=== PATIENT | male | born 1930 | race Hispanic/Latino ===

== ENCOUNTER 2018-04-27 11:34 | Inpatient (IN) | payer OTHER ==
[2018-04-27 11:54] VITALS: BMI 25.5
[2018-04-27] MEDS ORDERED: Sodium Chloride 0.9% 1,000 ML IV ONE (12:48)
[2018-04-27 13:21] LABS: BASO # 0.1 K/uL (0.0-0.2); BASO % 0.7 % (0.0-2.0); EOS # 0.2 K/uL (0.0-0.7); EOS % 1.4 % (0.0-4.0); HEMOGLOBIN 10.4 g/dL (12.0-18.0); LYMPH # 1.4 K/uL (1.0-4.3); LYMPH % 11.3 % (20.0-40.0); MEAN CELL VOLUME 88.5 fL (80.0-94.0); MEAN CORPUSCULAR HEMOGLOBIN 29.4 pg (27.0-31.0); MEAN CORPUSCULAR HGB CONC 33.2 g/dL (33.0-37.0); MEAN PLATELET VOLUME 8.5 fL (7.2-11.7); NEUT # 10.1 K/uL (1.8-7.0); NEUT % 78.6 % (50.0-75.0); RBC 3.53 Mil/uL (4.40-5.90); RED CELL DISTRIBUTION WIDTH 14.8 % (11.5-14.5); WHITE BLOOD COUNT 12.8 K/uL (4.8-10.8)
[2018-04-27 13:24] LABS: VENOUS BLOOD GAS BASE EXCESS 1.9 mmol/L (0.0-2.0); VENOUS BLOOD GAS PCO2 55 mmHg (40-60); VENOUS BLOOD GAS PO2 23 mm/Hg (30-55); VENOUS BLOOD PH 7.33 (7.32-7.43)
[2018-04-27 13:27] LABS: PROTHROMBIN TIME 11.4 SECONDS (9.7-12.2)
[2018-04-27 13:41] LABS: ALB/GLOB RATIO 1.3 (1.0-2.1); ALBUMIN 3.7 g/dL (3.5-5.0); ALT/SGPT 23 U/L (21-72); AST/SGOT 16 U/L (17-59); BLOOD UREA NITROGEN 20 mg/dL (9-20); GFR NON-AFRICAN AMERICAN > 60
--- NOTE | 2018-04-27 13:52 | CT ---
Date of service: 04/27/2018 PROCEDURE: CT HEAD WITHOUT CONTRAST. HISTORY: AMS COMPARISON: None available. TECHNIQUE: Axial computed tomography images were obtained through the head/brain without intravenous contrast. Radiation dose: Total exam DLP = 1122.35 mGy-cm. This CT exam was performed using one or more of the following dose reduction techniques: Automated exposure control, adjustment of the mA and/or kV according to patient size, and/or use of iterative reconstruction technique. FINDINGS: HEMORRHAGE: No acute parenchymal, subarachnoid nor extra-axial hemorrhage. BRAIN: Moderate patchy deep and subcortical white matter ischemic changes throughout both cerebral hemispheres. Additionally, there are mild diffuse-confluent chronic periventricular white matter ischemic changes scattered chronic bilateral basal nuclei lacunar type infarcts also present. . Note that the possibility of a small hyperacute infarct cannot be excluded on this exam. No obvious parenchymal nor extra-axial mass or collection seen on this noncontrast study. Moderate generalized volume loss. Vascular calcifications both carotid siphons and vertebral arteries. VENTRICLES: No obstructive hydrocephalus. CALVARIUM: Unremarkable. PARANASAL SINUSES: Minor mucosal thickening seen within a few ethmoid air cells. MASTOID AIR CELLS: Unremarkable as visualized. No inflammatory changes. OTHER FINDINGS: None. IMPRESSION: No acute intracranial hemorrhage. Moderate patchy deep and subcortical white matter ischemic changes both cerebral hemispheres. There also mild diffuse/confluent chronic periventricular white matter ischemic changes with scattered chronic bilateral basal nuclei lacunar type infarcts. Moderate generalized volume loss.
[2018-04-27 13:59] LABS: B-TYPE NATRIURETIC PEPTIDE 640 pg/mL (0-900)
--- NOTE | 2018-04-27 14:48 | C.PDOC ---
History Of Present Illness 88 y/o male, w/PMhx of HTN, diabetes, and recent left hip fracture s/p ORIF, BIBA for evaluation of a syncopal episode developed [employer]. As per family members, patient woke up in the morning and was complaining of feeling weak. Pt went to do some activities when he sustained a syncopal episode. On arrival of ambulance , patient had a fingerstick less than 30. Presently, patient denies having active physical complaints. Patient appears awake, slightly confused, and not in any apparent disease. Time Seen by Provider: 04/27/18 12:14 Chief Complaint (Nursing): Altered Mental Status History Per: Patient, Family History/Exam Limitations: None Onset/Duration Of Symptoms: Days Current Symptoms Are (Timing): Still Present Past Medical History Reviewed: Historical Data, Nursing Documentation, Vital Signs Vital Signs: Last Vital Signs Temp 98 F 04/29/18 05:57 Pulse 57 L 04/29/18 05:57 Resp 20 04/29/18 05:57 BP 142/57 L 04/29/18 05:57 Pulse Ox 96 04/29/18 05:57 - Medical History PMH: HTN ( PER PATIENT'S SON) Other Surgeries: Hx of surgeries Family History: States: No Known Family Hx - Social History Hx Alcohol Use: No Hx Substance Use: No - Immunization History Hx Tetanus Toxoid Vaccination: No Hx Influenza Vaccination: No Hx Pneumococcal Vaccination: No Review Of Systems Except As Marked, All Systems Reviewed And Found Negative. Constitutional: Negative for: Fever, Chills Neurological: Positive for: Other (syncope). Negative for: Weakness, Numbness Physical Exam - Physical Exam Appears: No Acute Distress, Other (awake, slightly confused) Skin: Normal Color, Warm, Dry Head: Atraumatic, Normacephalic Eye(s): bilateral: Normal Inspection Nose: Normal Oral Mucosa: Moist Neck: Supple Chest: Symmetrical Cardiovascular: Rhythm Regular, Murmur (pansystolic murmur 3/6) Respiratory: Normal Breath Sounds, No Rales, No Rhonchi, No Wheezing Gastrointestinal/Abdominal: Normal Exam, Soft, No Tenderness, No Guarding, No Rebound Extremity: Normal ROM, Other (left lower leg - non pitting edema) Neurological/Psych: Oriented x3, Normal Speech ED Course And Treatment - Laboratory Results Result Diagrams: 04/28/18 06:18 04/28/18 06:16 ECG: Interpreted By Me, Viewed By Me ECG Interpretation: Normal Interpretation Of ECG: Sinus rhythm with 1st degree AV block. Otherwise normal ECG O2 Sat by Pulse Oximetry: 100 (RA) Pulse Ox Interpretation: Normal - Radiology CXR: Interpreted by Me, Viewed By Me - CT Scan/US Ct head w/o contrast Other Rad Studies (CT/US): Radiology Report Reviewed CT/US Interpretation: IMPRESSION: No acute intracranial hemorrhage. Moderate patchy deep and subcortical white matter ischemic changes both cerebral hemispheres. There also mild diffuse/confluent chronic periventricular white matter ischemic changes with scattered chronic bilateral basal nuclei lacunar type infarcts. Moderate generalized volume loss. . Doppler B/L Other Rad Studies (CT/US): Radiology Report Reviewed CT/US Interpretation: (-) DVT of B/L lEs Progress Note: Pt remained stable during [facility] ED evaluation. case discussed with and admission rranged to tele with Dx: Syncope Disposition - Disposition Disposition: HOSPITALIZED Disposition Time: 14:01 Condition: STABLE - Clinical Impression Clinical Impression: Syncope - PA / SENIOR QUANTITY SURVEYOR / Resident Statement MD/DO has reviewed & agrees with the documentation as recorded. - Scribe Statement The provider has reviewed the documentation as recorded by the Keerthi Klely Provider Attestation All medical record entries made by the Scribe were at my direction and personally dictated by me. I have reviewed the chart and agree that the record accurately reflects my personal performance of the history, physical exam, medical decision making, and the department course for this patient. I have also personally directed, reviewed, and agree with the discharge instructions and disposition.
[2018-04-27] MEDS ORDERED: Dextrose 50% SYRINGE Inj (50 ml) IV STA (15:05)
[2018-04-27] MEDS ORDERED: Dextrose 50% SYRINGE Inj (50 ml) ONE (15:08)
--- NOTE | 2018-04-27 15:36 | RAD ---
Date of service: 04/27/2018 HISTORY: Sepsis Patient COMPARISON: No prior. FINDINGS: LUNGS: No consolidation. Trace linear bandlike faint opacities left hemidiaphragm/left lung base - subsegmental discoid atelectasis -and or scarring/fibrotic changes here considerations-chronicity unknown. PLEURA: No significant pleural effusion identified, no pneumothorax apparent. Additional findings as referenced above regarding the left aminata diaphragmatic pleural surface. CARDIOVASCULAR: Probable minimal cardiomegaly. Tortuous thoracic aorta. Atherosclerotic vascular calcifications present. OSSEOUS STRUCTURES: Bilateral shoulder arthrosis VISUALIZED UPPER ABDOMEN: Normal. OTHER FINDINGS: None. IMPRESSION: No consolidation. Mostly thin bandlike but also trace radiolucent patchy faint opacity over left hemidiaphragm - combination subsegmental atelectasis/trace linear fibrosis and post inflammatory like changes here are favored. No dense air bronchograms consolidation seen. A subtle infiltrate cannot be entirely excluded here Follow-up recommended
[2018-04-27 15:50] LABS: SQUAMOUS EPITHIAL < 1 /hpf (0-5); URINE BILIRUBIN NEGATIVE (NEGATIVE); URINE BLOOD NEGATIVE (NEGATIVE); URINE CLARITY Clear (Clear); URINE COLOR Yellow (YELLOW); URINE GLUCOSE (UA) 1+ mg/dL (Normal); URINE LEUKOCYTE ESTERASE NEG Leu/uL (Negative); URINE PROTEIN NEGATIVE (NEGATIVE); URINE UROBILINOGEN NORMAL mg/dL (0.2-1.0)
--- NOTE | 2018-04-27 16:22 | CP.PCM.HP ---
Past Patient History - Past Social History Smoking Status: Never Smoked - CARDIAC Hx Hypertension: Yes ( PER PATIENT'S SON) - ENDOCRINE/METABOLIC Hx Diabetes Mellitus Type 2: Yes ( PER PATIENT AND SON) - PSYCHIATRIC Hx Substance Use: No - SURGICAL HISTORY Hx Surgeries: Yes Hx Orthopedic Surgery: Yes (RIGHT HIP SURGERY 6 WEEKS AGO PER PATIENT'S SON) - ANESTHESIA Hx Anesthesia: Yes Meds Allergies/Adverse Reactions: Allergies Allergy/AdvReac Type Severity Reaction Status Date / Time No Known Allergies Allergy Unverified 04/27/18 11:55 Results - Vital Signs Recent Vital Signs: Last Vital Signs Temp 97.6 F 04/27/18 14:46 Pulse 67 04/27/18 14:46 Resp 18 04/27/18 14:46 BP 127/56 L 04/27/18 14:46 Pulse Ox 100 04/27/18 15:24 - Labs Result Diagrams: 04/27/18 13:12 04/27/18 13:12 Labs: Laboratory Results - last 24 hr 04/27/18 04/27/18 04/27/18 11:48 13:12 13:12 WBC 12.8 H RBC 3.53 L Hgb 10.4 L Hct 31.2 L MCV 88.5 MCH 29.4 MCHC 33.2 RDW 14.8 H Plt Count 260 MPV 8.5 Neut % (Auto) 78.6 H Lymph % (Auto) 11.3 L [place] % (Auto) 8.0 Eos % (Auto) 1.4 Baso % (Auto) 0.7 Neut # (Auto) 10.1 H Lymph # (Auto) 1.4 [place] # (Auto) 1.0 H Eos # (Auto) 0.2 Baso # (Auto) 0.1 PT 11.4 INR 1.0 APTT 30 pO2 VBG pH VBG pCO2 VBG HCO3 VBG Total CO2 VBG O2 Sat (Calc) VBG Base Excess VBG Potassium Glucose Lactate Sodium Potassium Chloride Carbon Dioxide Anion Gap BUN Creatinine Est GFR ( Amer) Est GFR (Non-Af Amer) POC Glucose (mg/dL) 108 Random Glucose Calcium Phosphorus Magnesium Total Bilirubin AST ALT Alkaline Phosphatase Total Creatine Kinase Troponin I NT-Pro-B Natriuret Pep Total Protein Albumin Globulin Albumin/Globulin Ratio Venous Blood Potassium Urine Color Urine Clarity Urine pH Ur Specific [place] Urine Protein Urine Glucose (UA) Urine Ketones Urine Blood Urine Nitrate Urine Bilirubin Urine Urobilinogen Ur Leukocyte Esterase Urine WBC (Auto) Ur Squamous Epith Cells 04/27/18 04/27/18 04/27/18 13:12 13:21 15:01 WBC RBC Hgb Hct MCV MCH MCHC RDW Plt Count MPV Neut % (Auto) Lymph % (Auto) [place] % (Auto) Eos % (Auto) Baso % (Auto) Neut # (Auto) Lymph # (Auto) [place] # (Auto) Eos # (Auto) Baso # (Auto) PT INR APTT pO2 23 L VBG pH 7.33 VBG pCO2 55 VBG HCO3 24.7 VBG Total CO2 30.7 H VBG O2 Sat (Calc) 38.6 L VBG Base Excess 1.9 VBG Potassium 3.8 Glucose 76 Lactate 2.3 H Sodium 143 139.0 Potassium 4.1 Chloride 101 104.0 Carbon Dioxide 29 Anion Gap 16 BUN 20 Creatinine 0.6 L Est GFR ( Amer) > 60 Est GFR (Non-Af Amer) > 60 POC Glucose (mg/dL) 41 L Random Glucose 82 Calcium 9.0 Phosphorus 3.8 Magnesium 1.5 L Total Bilirubin 0.3 AST 16 L ALT 23 Alkaline Phosphatase 150 H Total Creatine Kinase 66 Troponin I 0.0180 NT-Pro-B Natriuret Pep 640 Total Protein 6.5 Albumin 3.7 Globulin 2.8 Albumin/Globulin Ratio 1.3 Venous Blood Potassium 3.8 Urine Color Urine Clarity Urine pH Ur Specific [place] Urine Protein Urine Glucose (UA) Urine Ketones Urine Blood Urine Nitrate Urine Bilirubin Urine Urobilinogen Ur Leukocyte Esterase Urine WBC (Auto) Ur Squamous Epith Cells 04/27/18 04/27/18 04/27/18 15:02 15:30 15:45 WBC RBC Hgb Hct MCV MCH MCHC RDW Plt Count MPV Neut % (Auto) Lymph % (Auto) [place] % (Auto) Eos % (Auto) Baso % (Auto) Neut # (Auto) Lymph # (Auto) [place] # (Auto) Eos # (Auto) Baso # (Auto) PT INR APTT pO2 VBG pH VBG pCO2 VBG HCO3 VBG Total CO2 VBG O2 Sat (Calc) VBG Base Excess VBG Potassium Glucose Lactate Sodium Potassium Chloride Carbon Dioxide Anion Gap BUN Creatinine Est GFR ( Amer) Est GFR (Non-Af Amer) POC Glucose (mg/dL) 37 L* 156 H Random Glucose Calcium Phosphorus Magnesium Total Bilirubin AST ALT Alkaline Phosphatase Total Creatine Kinase Troponin I NT-Pro-B Natriuret Pep Total Protein Albumin Globulin Albumin/Globulin Ratio Venous Blood Potassium Urine Color Yellow Urine Clarity Clear Urine pH 5.0 Ur Specific [place] 1.014 Urine Protein Negative Urine Glucose (UA) 1+ H Urine Ketones Negative Urine Blood Negative Urine Nitrate Negative Urine Bilirubin Negative Urine Urobilinogen Normal Ur Leukocyte Esterase Neg Urine WBC (Auto) 1 Ur Squamous Epith Cells < 1
[2018-04-27 22:20] LABS: CK-MB 1.67 ng/mL (0.0-3.38); TROPONIN I 0.023 ng/mL (0.00-0.120)
[2018-04-28 06:26] LABS: BASO # 0.1 K/uL (0.0-0.2); BASO % 0.7 % (0.0-2.0); EOS # 0.5 K/uL (0.0-0.7); HEMOGLOBIN 10.5 g/dL (12.0-18.0); LYMPH # 2.5 K/uL (1.0-4.3); LYMPH % 23.9 % (20.0-40.0); MEAN CELL VOLUME 88.3 fL (80.0-94.0); MEAN CORPUSCULAR HEMOGLOBIN 29.1 pg (27.0-31.0); MEAN PLATELET VOLUME 8.7 fL (7.2-11.7); MONO # 1.1 K/uL (0.0-0.8); MONO % 10.6 % (0.0-10.0); NEUT # 6.2 K/uL (1.8-7.0); NEUT % 59.8 % (50.0-75.0); RBC 3.61 Mil/uL (4.40-5.90); RED CELL DISTRIBUTION WIDTH 15.1 % (11.5-14.5); WHITE BLOOD COUNT 10.4 K/uL (4.8-10.8)
[2018-04-28 06:45] LABS: ALB/GLOB RATIO 1.3 (1.0-2.1); ALBUMIN 3.4 g/dL (3.5-5.0); ALT/SGPT 27 U/L (21-72); AST/SGOT 15 U/L (17-59); BLOOD UREA NITROGEN 16 mg/dL (9-20); CALCIUM 8.8 mg/dl (8.6-10.4); GFR NON-AFRICAN AMERICAN > 60
--- NOTE | 2018-04-28 12:53 | CARD ---
APPROVED REPORT Date of service: 04/27/2018 EKG Measurement Heart [id number] <Conclusion> Sinus rhythm with 1st degree AV block Otherwise normal ECG
--- NOTE | 2018-04-28 15:46 | VASCLAB ---
Date of service: 04/27/2018 PROCEDURE: Lower Extremity Venous Duplex Exam. HISTORY: legs swelling, syncope PRIORS: None. TECHNIQUE: Bilateral common femoral, femoral, popliteal and posterior tibial, peroneal and great saphenous veins were evaluated. Flow was assessed with color Doppler, compressibility, assessment of phasic flow and augmentation response. Report prepared by Neftali Guadarrama, BS, RVT FINDINGS: RIGHT: 1. Common Femoral Vein: 1.1. Compressibility - Fully compressible: Thrombus - None : Flow - Phasic: Augmentation -Normal: Reflux - None. 2. Femoral Vein: 2.1. Compressibility - Fully compressible: Thrombus - None : Flow - Phasic: Augmentation -Normal: Reflux - None. 3. Popliteal Vein: 3.1. Compressibility - Fully compressible: Thrombus - None : Flow - Phasic: Augmentation -Normal: Reflux - None. 4. Posterior Tibial Vein: 4.1. Compressibility - Fully compressible: Thrombus - None: Flow - Phasic: Augmentation -Normal: Reflux - None. 5. Peroneal Vein: 5.1. Compressibility - Fully compressible: Thrombus - None: Flow - Phasic: Augmentation -Normal: Reflux - None. 6. Great Saphenous Vein: 6.1. Compressibility - Fully compressible: Thrombus - None: Flow - Phasic: Augmentation - Normal: Reflux - None. LEFT: 1. Common Femoral Vein: 1.1. Compressibility - Fully compressible: Thrombus - None: Flow - Phasic: Augmentation -Normal: Reflux - None. 2. Femoral Vein: 2.1. Compressibility - Fully compressible: Thrombus - None: Flow - Phasic: Augmentation -Normal: Reflux - None. 3. Popliteal Vein: 3.1. Compressibility - Fully compressible: Thrombus - None : Flow - Phasic: Augmentation -Normal: Reflux - None. 4. Posterior Tibial Vein: 4.1. Compressibility - Fully compressible: Thrombus - None: Flow - Phasic: Augmentation -Normal: Reflux - None. 5. Peroneal Vein: 5.1. Compressibility - Fully compressible: Thrombus - None: Flow - Phasic: Augmentation -Normal: Reflux - None. 6. Great Saphenous Vein: 6.1. Compressibility - Fully compressible: Thrombus - None: Flow - Phasic: Augmentation - Normal: Reflux - None. OTHER FINDINGS: Right: None significant. Left: None significant. IMPRESSION: Right: No evidence of deep or superficial vein thrombosis of the right lower extremity. Normal valve function noted of the right side. Left: No evidence of deep or superficial vein thrombosis of the left lower extremity. Normal valve function noted of the left side.
--- NOTE | 2018-04-28 20:01 | CP.PCM.PN ---
Subjective - Date & Time of Evaluation Date of Evaluation: 04/28/18 Time of Evaluation: 10:00 Objective - Vital Signs/Intake and Output Vital Signs (last 24 hours): Temp Pulse Resp BP Pulse Ox 98.1 F 64 17 111/71 99 04/28/18 16:00 04/28/18 19:36 04/28/18 16:00 04/28/18 16:00 04/28/18 16:00 - Medications Medications: Current Medications Amlodipine Besylate (Norvasc) 5 mg PO DAILY [facility] Last Admin: 04/28/18 09:30 Dose: 5 mg Gabapentin (Neurontin) 100 mg PO BID [facility] Last Admin: 04/28/18 09:30 Dose: 100 mg Rivaroxaban (Xarelto) 10 mg PO DAILY [facility] Last Admin: 04/28/18 09:30 Dose: 10 mg Tamsulosin HCl (Flomax) 0.4 mg PO DAILY [facility] Last Admin: 04/28/18 09:30 Dose: 0.4 mg - Labs Labs: 04/28/18 06:18 04/28/18 06:16 PT 11.4 SECONDS (9.7-12.2) 04/27/18 13:12 INR 1.0 04/27/18 13:12 APTT 30 SECONDS (21-34) 04/27/18 13:12
--- NOTE | 2018-04-29 10:34 | CP.PCM.PN ---
Subjective - Date & Time of Evaluation Date of Evaluation: 04/29/18 Time of Evaluation: 11:15 - Subjective Subjective: clinically same Objective - Vital Signs/Intake and Output Vital Signs (last 24 hours): Temp Pulse Resp BP Pulse Ox 98 F 57 L 20 142/57 L 100 04/29/18 05:57 04/29/18 05:57 04/29/18 05:57 04/29/18 05:57 04/29/18 06:21 Intake and Output: 04/29/18 04/29/18 06:59 18:59 Intake Total 240 Balance 240 - Medications Medications: Current Medications Amlodipine Besylate (Norvasc) 5 mg PO DAILY [facility] Last Admin: 04/29/18 09:25 Dose: 5 mg Gabapentin (Neurontin) 100 mg PO BID [facility] Last Admin: 04/29/18 09:25 Dose: 100 mg Rivaroxaban (Xarelto) 10 mg PO DAILY [facility] Last Admin: 04/29/18 09:27 Dose: 10 mg Tamsulosin HCl (Flomax) 0.4 mg PO DAILY [facility] Last Admin: 04/29/18 09:25 Dose: 0.4 mg - Labs Labs: 04/28/18 06:18 04/28/18 06:16 PT 11.4 SECONDS (9.7-12.2) 04/27/18 13:12 INR 1.0 04/27/18 13:12 APTT 30 SECONDS (21-34) 04/27/18 13:12
[2018-04-29] MEDS ORDERED: Magnesium Sulfate 1 gm in D5W 1 GM/100 ML BAG IVPB ONE (11:00)
--- NOTE | 2018-04-29 13:04 | CP.PCM.CON ---
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 As per family members, patient woke up in the morning and was complaining of feeling weak. Pt was attending a ' mass when he sustained a syncopal episode. > claims had a full breakfast in AM Recovering from hip surgery, ambulates with walker. Denies CP but states mild SOb with exertion. No fevers, chills ro cough No palpitation or dizziness Cardiac HX: No CA/coronary intervention or CABG PMHX: HTn chronic labile; DM chronic labile, Hip surgery: recent stable Review of Systems - Review of Systems All systems: reviewed and no additional remarkable complaints except Past Patient History - Past Medical History & Family History Past Medical History?: Yes - Past Social History Smoking Status: Never Smoked - CARDIAC Hx Hypertension: Yes ( PER PATIENT'S SON) - ENDOCRINE/METABOLIC Hx Diabetes Mellitus Type 2: Yes - MUSCULOSKELETAL/RHEUMATOLOGICAL Hx Falls: Yes - PSYCHIATRIC Hx Substance Use: No - SURGICAL HISTORY Hx Surgeries: Yes Hx Orthopedic Surgery: Yes (RIGHT HIP SURGERY 6 WEEKS AGO PER PATIENT'S SON) - ANESTHESIA Hx Anesthesia: Yes Hx Anesthesia Reactions: No Hx Malignant Hyperthermia: No Has any member of the family had a problem w/ anesthesia?: No Meds Allergies/Adverse Reactions: Allergies Allergy/AdvReac Type Severity Reaction Status Date / Time No Known Allergies Allergy Unverified 04/27/18 11:55 - Medications Medications: Current Medications Amlodipine Besylate (Norvasc) 5 mg PO DAILY [facility] Last Admin: 04/29/18 09:25 Dose: 5 mg Gabapentin (Neurontin) 100 mg PO BID [facility] Last Admin: 04/29/18 09:25 Dose: 100 mg Rivaroxaban (Xarelto) 10 mg PO DAILY [facility] Last Admin: 04/29/18 09:27 Dose: 10 mg Tamsulosin HCl (Flomax) 0.4 mg PO DAILY [facility] Last Admin: 04/29/18 09:25 Dose: 0.4 mg Physical Exam - Constitutional Appears: No Acute Distress - Head Exam Head Exam: ATRAUMATIC, NORMAL INSPECTION, NORMOCEPHALIC - Eye Exam Eye Exam: EOMI, Normal appearance, PERRL - ENT Exam ENT Exam: Mucous Membranes Moist, Normal Oropharynx - Neck Exam Neck exam: Positive for: Normal Inspection - Respiratory Exam Respiratory Exam: Clear to Auscultation Bilateral, NORMAL BREATHING PATTERN. absent: Rhonchi, Wheezes - Cardiovascular Exam Cardiovascular Exam: REGULAR RHYTHM, +S1, +S2, Systolic Murmur (3/6 [place] with a soft A2, mild radiation to carotids) - GI/Abdominal Exam GI & Abdominal Exam: Normal Bowel Sounds, Soft. absent: Tenderness - Extremities Exam Extremities exam: Positive for: normal inspection. Negative for: calf tenderness, pedal edema - Neurological Exam Neurological exam: Alert, CN II-XII Intact, Oriented x3 - Psychiatric Exam Psychiatric exam: Normal Affect, Normal Mood - Skin Skin Exam: Normal Color, Warm Results - Vital Signs Recent Vital Signs: Last Vital Signs Temp 98 F 04/29/18 10:57 Pulse 63 04/29/18 10:57 Resp 18 04/29/18 10:57 BP 157/74 H 04/29/18 10:57 Pulse Ox 97 04/29/18 10:57 - Labs Result Diagrams: 04/28/18 06:18 04/28/18 06:16 Labs: Laboratory Results - last 24 hr 04/28/18 04/28/18 04/28/18 07:32 11:11 16:32 POC Glucose (mg/dL) 151 H 228 H 228 H 04/28/18 04/29/18 04/29/18 21:30 06:06 11:57 POC Glucose (mg/dL) 195 H 137 H 270 H Assessment & Plan - Assessment and Plan (Free Text) Assessment: Syncope > likely induced by hypoglycemia; sx's improved > supportive care and adjust and eval DM meds > CT head: chronic changes no acute pathology > Neuro f/u Cardiac Murmur > typical of atleast moderate by exam: f/u echo to eval > EKG: NSR with 1st deg AVB: directly viewed by me > Trop neg x2 > No ADHF or active ischemia or angina > suggest ASA and statin HTN > Mild > cont amlodipine > monitor for now
[2018-04-29 17:10] VITALS: RESP 20
--- NOTE | 2018-04-29 17:41 | CP.PCM.CON ---
History of Present Illness - History of Present Illness History of Present Illness: PGY-[address] Nuñez CC - syncope Patient is a 88 yo male with PMHx of HTN, DM2, BPH, and right hip fracture s/p ORIF 6 weeks ago, who presented with a syncopal episode. EMS personal measured blood glucose to be 30 and he was given dextrose. He stated he ate a normal full breakfast. Patient states that on the morning of admission date he was attending a memorial service when after walking to his car seat and sitting down he suddenly lost consciousness. He states that there were many witnesses though he is unsure if he was convulsing or exactly how long he lost consciousness. The next thing he remembers was waking to EMS personal. While in ED, CT scan showed no acute ICH and EKG showed 1st degree av block. Patient states that he had a similar loss of consciousness 6 weeks ago. He is compliant with his daily medications and checks his blood glucose daily which ranges around 150-200 usually. At the time of exam he denies headache, blurry vision, dizziness, lightheadedness, numbness, weakness, paresthesias. PMH- as above PSH- ORIF of right hip 6 weeks ago Medications- Metformin, Flomax, Lantus 24u, Norvasc Allergies- NKDA ROS- as above Family- no family history of seizures social- 2 years ago, 3 adult children. Former smoker and former alcohol use but quit many years ago. 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 Since the original fall he uses a walker for ambulation but prior to that he ambulated independently without problems. Review of Systems - Constitutional Constitutional: absent: Chills, Fever - EENT Eyes: absent: Blurred Vision Ears: Abnormal Hearing - Cardiovascular Cardiovascular: absent: Chest Pain - Respiratory Respiratory: absent: Cough, Wheezing - Gastrointestinal Gastrointestinal: absent: Abdominal Pain, Diarrhea, Nausea - Genitourinary Genitourinary: absent: Dysuria - Musculoskeletal Musculoskeletal: Back Pain - Neurological Neurological: Abnormal Hearing. absent: Confusion, Convulsions, Dizziness, Numbness, Focal Weakness, Sensory Deficit, Vertigo, Weakness Past Patient History - Past Medical History & Family History Past Medical History?: Yes - Past Social History Smoking Status: Never Smoked - CARDIAC Hx Hypertension: Yes ( PER PATIENT'S SON) - ENDOCRINE/METABOLIC Hx Diabetes Mellitus Type 2: Yes - MUSCULOSKELETAL/RHEUMATOLOGICAL Hx Falls: Yes - PSYCHIATRIC Hx Substance Use: No - SURGICAL HISTORY Hx Surgeries: Yes Hx Orthopedic Surgery: Yes (RIGHT HIP SURGERY 6 WEEKS AGO PER PATIENT'S SON) - ANESTHESIA Hx Anesthesia: Yes Hx Anesthesia Reactions: No Hx Malignant Hyperthermia: No Has any member of the family had a problem w/ anesthesia?: No Meds Allergies/Adverse Reactions: Allergies Allergy/AdvReac Type Severity Reaction Status Date / Time No Known Allergies Allergy Unverified 04/27/18 11:55 - Medications Medications: Current Medications Amlodipine Besylate (Norvasc) 5 mg PO DAILY [facility] Last Admin: 04/29/18 09:25 Dose: 5 mg Gabapentin (Neurontin) 100 mg PO BID [facility] Last Admin: 04/29/18 17:03 Dose: 100 mg Rivaroxaban (Xarelto) 10 mg PO DAILY [facility] Last Admin: 04/29/18 09:27 Dose: 10 mg Tamsulosin HCl (Flomax) 0.4 mg PO DAILY [facility] Last Admin: 04/29/18 09:25 Dose: 0.4 mg Physical Exam - Constitutional Appears: Well, Non-toxic, No Acute Distress - Head Exam Head Exam: ATRAUMATIC, NORMAL INSPECTION - Eye Exam Eye Exam: EOMI, PERRL. absent: Nystagmus - ENT Exam ENT Exam: Mucous Membranes Moist - Respiratory Exam Respiratory Exam: Clear to Auscultation Bilateral, NORMAL BREATHING PATTERN. absent: Rales, Rhonchi, Wheezes - Cardiovascular Exam Cardiovascular Exam: REGULAR RHYTHM. absent: Tachycardia - GI/Abdominal Exam GI & Abdominal Exam: Normal Bowel Sounds, Soft. absent: Tenderness - Extremities Exam Extremities exam: Positive for: normal capillary refill, normal inspection. Negative for: pedal edema, pedal pulses present - Neurological Exam Neurological exam: Alert, CN II-XII Intact, Normal Gait (patient with antalgic gait 2/2 to recent hip surgery), Oriented x3, Reflexes Normal - Psychiatric Exam Psychiatric exam: Normal Affect, Normal Mood - Skin Skin Exam: Normal Color, Warm Results - Vital Signs Recent Vital Signs: Last Vital Signs Temp 97.5 F L 04/29/18 15:00 Pulse 68 04/29/18 15:00 Resp 20 04/29/18 15:00 BP 125/66 04/29/18 15:00 Pulse Ox 99 04/29/18 15:00 - Labs Result Diagrams: 04/28/18 06:18 04/28/18 06:16 Labs: Laboratory Results - last 24 hr 04/28/18 04/29/18 04/29/18 21:30 06:06 11:57 POC Glucose (mg/dL) 195 H 137 H 270 H Assessment & Plan - Assessment and Plan (Free Text) Plan: Patient is a 88 yo male with PMHx of HTN, DM2, BPH, and right hip fracture s/p ORIF 6 weeks ago, who presented with a syncopal episode: Syncope -Likely 2/2 to hypoglycemia, EMS found blood glucose to be 30, in our ED blood glucose at one point was 37, he also had recent changes to his insulin regimen -CT head w/o contrast: * No acute intracranial hemorrhage. Moderate patchy deep and subcortical white matter ischemic changes both cerebral hemispheres. There also mild diffuse/ confluent chronic periventricular white matter ischemic changes with scattered chronic bilateral basal nuclei lacunar type infarcts. Moderate generalized volume loss. -Venous Dopplers LE: * Negative for DVT b/l -Patient is currently on xaralto 10mg po qd for DVT prophylaxis given he had recent hip surgery (hip replacement?) -Start aspirin 81mg po qd and crestor 10mg po qd * also recommended by cardiology -Patient needs to follow-up with a diabetic specialist who can better optimize his insulin regimen Neurology will sign off Case discussed with Dr Nuñez
[2018-04-30 07:47] VITALS: BP 123/70; TEMP 98.2; O2SAT 94
[2018-04-30 13:37] VITALS: PULSE 60
--- NOTE | 2018-05-01 16:37 | CARD ---
APPROVED REPORT Date of service: 04/30/2018 EXAM: Two-dimensional and M-mode echocardiogram with Doppler and color Doppler. Other Information Quality : GoodRhythm : INDICATION Syncope RISK FACTORS Hypertension Diabetes 2D DIMENSIONS IVSd0.9 (0.7-1.1cm)LVDd5.4 (3.9-5.9cm) LVOT Diameter2.0 (1.8-2.4cm)PWd1.1 (0.7-1.1cm) LVDs4.4 (2.5-4.0cm)FS (%) 19.6 % LVEF (%)51.0 (>50%) M-Mode DIMENSIONS RVDd2.15 (2.1-3.2cm)Left Atrium (MM)3.12 (2.5-4.0cm) IVSd1.77 (0.7-1.1cm)Aortic Root3.52 (2.2-3.7cm) LVDd4.27 (4.0-5.6cm)Aortic Cusp Exc.1.39 (1.5-2.0cm) PWd1.32 (0.7-1.1cm)FS (%) 21 % LVDs3.37 (2.0-3.8cm)LVEF (%)55 (>50%) Aortic Valve AoV Peak Ivxtvkzn478.4cm/sAoV VTI95.0cmAO Peak GR.55mmHg LVOT Peak Ncfskirz06.2cm/sLVOT VTI24.33cmAO Mean GR.34mmHg THERESE (VMAX)0.58xd5IPA (VTI)0.81cm2 Mitral Valve MV E Zjskszay89.7cm/sMV A Mtorfmhn624.9cm/sE/A ratio0.6 TDI E/Lateral E'0.0E/Medial E'0.0 Tricuspid Valve TR Peak Kdxuzcvo236qk/sTR Peak Gr.46neJaQYWE18hyBv LEFT VENTRICLE The left ventricle is normal size. There is normal left ventricular wall thickness. The left ventricular function is normal. The left ventricular ejection fraction is within the normal range. There is normal LV segmental wall motion. Transmitral Doppler flow pattern is abnormal. RIGHT VENTRICLE The right ventricle is normal size. ATRIA The left atrium size is normal. The right atrium size is normal. AORTIC VALVE There is severe valvular aortic stenosis. MITRAL VALVE Mitral regurgitation is trace. TRICUSPID VALVE There is trace to mild tricuspid regurgitation. <Conclusion> Normal LV systolic function. Diastolic dysfunction. Normal chamber size. Trace MR. Trace to mild TR. severe Aortic stenosis.
== END 2018-04-30 14:26 | disposition home or self-care (01) | DRG 639 ==
LOC: C.ER 11:34 → C.9E 14:02 → C.9I 17:38 → C.6T 04-28 17:26
PROVIDERS: ADMIT Internal Medicine Nephrology; ATTEND Internal Medicine Nephrology
DX: E11.641 Type 2 diabetes mellitus with hypoglycemia with coma (principal); I10 Essential (primary) hypertension; I44.0 Atrioventricular block, first degree; N40.0 Benign prostatic hyperplasia without lower urinary tract symptoms; Z87.891 Personal history of nicotine dependence; Z98.890 Other specified postprocedural states; Z79.4 Long term (current) use of insulin